=== PATIENT | male | born 1985 | race Caucasian/White ===

== ENCOUNTER 2022-01-25 18:40 | Emergency (ER) | payer OTHER ==
[~2022-01-25] VITALS: Ht 170.2 cm; Wt 77.1 kg
[2022-01-25 18:59] VITALS: BP 128/65
--- NOTE | 2022-01-25 19:01 | NUR ---
COVID TEST COLLECTED AND SENT
[2022-01-25] MEDS ORDERED: GUAIFENESIN/CODEINE 10 ML UDC ONE (19:29)
[2022-01-25] MEDS ORDERED: GUAIFENESIN/D-METHORPHAN HB 5 ML UDC PO ONE (19:30)
[2022-01-25] MEDS ORDERED: GUAIFENESIN/D-METHORPHAN HB 5 ML UDC ONE (19:30)
--- NOTE | 2022-01-25 20:12 | NUR ---
PT DISCHARGED IN [employer] CUSTODY.
== END 2022-01-25 20:13 ==
LOC: ER 19:07
DX: R05.9 Cough, unspecified (principal); Z20.822 Contact with and (suspected) exposure to COVID-19
CPT/HCPCS: 99283; 87426; C9803